=== PATIENT | male | born 1990 | race Caucasian/White ===

== ENCOUNTER 2017-11-01 22:38 | Emergency (ER) | payer SELFPAY ==
[2017-11-01 22:39] VITALS: BP 153/86; PULSE 151; RESP 16; TEMP 37.5; O2SAT 95; BMI 28.5
--- NOTE | 2017-11-01 23:06 | EKG12_ITS ---
Test Reason : GENERAL ILLNESS Blood Pressure : / mmHG Vent. Rate : 132 BPM Atrial Rate : 132 BPM P-R Int : 146 ms QRS Dur : 078 ms QT Int : 284 ms P-R-T Axes : 051 027 038 degrees QTc Int : 420 ms Sinus tachycardia Otherwise normal ECG Confirmed by NEHAL AMOS, MOISES ([id number]), slot editor ARACELI SHAW ([id number] on 11/03/2017 1:24:41 PM Referred By: VIPIN Confirmed By:MOISES CALVERT MD
--- NOTE | 2017-11-01 23:09 | ED.VISSUMM ---
- ER Visit Summary Date of Service: 11/01/17 Chief Complaint: Cough History of Present Illness: The patient is a 27 M with nasal congestion and rhinorrhea for a week to 1.5 weeks, states that as of this morning, he has had subjective fevers, malaise, myalgias, a significant nonproductive cough, and since he woke up from a nap earlier, chest heaviness/tightness and some mild dyspnea. Significant other had 2 different viruses but they were a month or 2 ago. Patient denies any past medical history, no recent travel, hospitalization, surgeries, leg pain or swelling, heart or lung history. Physical Examination: Temperature is 99.5, heart rate 151, pulse ox 95 on room air. The rest of his vital signs are unremarkable, respiratory rate 16. He is in no acute distress. Expiratory wheezes throughout all lung silva, otherwise clear. Equal breath sounds are bilaterally. Trachea midline. Posterior oropharynx is erythematous but there is no tonsillar edema, exudates, or asymmetry. TMs are normal bilaterally, no cervical lymphadenopathy, neck is supple. Abdomen benign. No calf tenderness or pedal edema. Test Results: Influenza swab negative. Chest x-ray read by radiology as lateral left basilar atelectasis and otherwise negative. EKG shows sinus tachycardia and is otherwise normal. Normal axis. No signs of acute injury. Emergency Department Course and Treatment: After a duo nebulizer treatment, his chest discomfort is gone, he is definitely feeling better. I reexamined him. He has slight inspiratory wheezes and rhonchi at the bases, versus transmitted upper airway sounds. Given this I think it is reasonable to cover him for possible clinical pneumonia. He is in no respiratory distress, is conversational, he is breathing comfortably, and I think he is stable for discharge home. He appears relatively well. We will give him a dose of azithromycin as well as prescription for the rest as well as an albuterol inhaler prescription. Encouraged to return if worse, otherwise following up with his doctor this coming week. He is comfortable with that plan. Treatment Plan: Azithromycin, albuterol mdi Disposition: Discharge home Impression: Clinical community acquired pneumonia This note was generated with [employer] software. It may contain incorrect words, spelling, and punctuation that were not noted in review of the chart prior to signing ED Disposition - Plan for ED Patient: Disposition: Home or Assisted Living Chief Complaint: General Illness Instructions: Walking Pneumonia Prescriptions: Albuterol Inhaler [Ventolin Hfa] 1 - 2 puff INHALATION Q4H PRN PRN #1 inhaler PRN Reason: Wheezing Azithromycin 250 mg PO QHS #4 tab Referrals: Christine Rolle [NON-STAFF] - 3-5 Days
[2017-11-01 23:16] VITALS: PULSE 131; RESP 24
[2017-11-01] MEDS: Ipratropium/Albuterol Sulfate 3 ML AMPUL.NEB INHALATION (23:16)
[2017-11-01] MEDS: Acetaminophen 500 MG Tablet 1000 MG PO (23:16)
--- NOTE | 2017-11-01 23:45 | RAD_ITS ---
STUDY: X-RAY CHEST REASON FOR EXAM: Male, 27 years old. Cough with fever. TECHNIQUE: Frontal and lateral views of the chest. COMPARISON: None. FINDINGS: There is mild left lateral basilar atelectasis. Otherwise the lungs are clear and expanded. There is no demonstrated pleural abnormality. Normal size heart. Normal mediastinum and dante. Normal visualized pulmonary arteries. Normal visualized aortic arch and descending thoracic aorta. Normal visualized thoracic spine. Normal visualized ribs, clavicles, and shoulders. There is no demonstrated abnormality of the visualized soft tissue structures of the upper abdomen. RAD/Chest PA and Lateral IMPRESSION: Mild left basilar atelectasis. No evidence for acute cardiopulmonary pathology. Electronically Signed: Robert Guo MD at 1:03 EST , Service support ,
[2017-11-02] MEDS: Azithromycin 250 MG Tablet 500 MG PO (01:23)
[2017-11-02 01:24] VITALS: PULSE 117; RESP 15; O2SAT 95
== END 2017-11-02 01:25 | disposition home or self-care (01) ==
PROVIDERS: Emergency Provider Emergency Medicine
DX: J18.9 Pneumonia, unspecified organism (principal); R00.0 Tachycardia, unspecified
CPT/HCPCS: 71046; 87804; 93005; 94640; 99283

== ENCOUNTER 2019-06-09 20:51 | Emergency (ER) | payer OTHER, SELFPAY ==
[2019-06-09 20:52] VITALS: BP 145/71; PULSE 87; RESP 16; TEMP 36.3; O2SAT 99; BMI 29.2
--- NOTE | 2019-06-09 21:42 | ED.DCSUM_ITS ---
- ER Visit Summary Date of Service: 06/09/19 Chief Complaint: Dental pain History of Present Illness: The patient is a 29 M who goes to the [facility]. He reports that he has pain to his maxillary left central incisor that began today. Is a throbbing pain sent 10 hours and 7 out of 10 currently. Is worsened by eating. Is partially relieved by Tylenol. It is sensitive to cold temperatures. Patient reports that he has been having problems with his left maxillary second and third molars for proximally 1 week. He actually has an appointment to see the dental clinic at the [facility] clinic next week. Physical Examination: Vitals: Stable. Afebrile. Mouth: No trismus. No edema of the floor of the mouth. Pain with percussion of left maxillary central incisor. There is no focal abscess here. He has obvious caries to his left maxillary third molar in the posterior two thirds of this is eroded to the gumline. There are obvious caries in the second molar as well. Both of these teeth are moderately tender to percussion. There is no focal abscess here either. General: A&O x 3. NAD. Cardiovascular exam: Regular rate and rhythm, no murmur, rub or gallop. Respiratory exam: Clear to auscultation bilaterally. No wheezes or stridor. Abdominal exam: Soft, nontender, nondistended, normal bowel sounds. No peritoneal signs. Extremity: No clubbing, cyanosis, or edema. Emergency Department Course and Treatment: She was treated with penicillin and naproxen. He is resting comfortably. Treatment Plan: Patient will be discharged penicillin naproxen. Instructed to contact the [facility] and to getting his seen as soon as possible. He is also given a list of other dental clinics in the area. Return to the emergency department for any worsening symptoms. Disposition: To home in improved and stable condition. Impression: 1. Dental pain. This note was generated with [employer] dictation software. It may contain incorrect words, spelling, and punctuation that were not noted in review of the chart prior to signing ED Disposition - Plan for ED Patient: Disposition: Home or Assisted Living Instructions: Dental Pain Prescriptions: Naproxen [Naprosyn] 500 mg PO BID #14 tab Prescription Printed Penicillin V Potassium 500 mg PO 4X/DAY #40 tab Prescription Printed Referrals: Dentist,Your [STAFF PHYSICIAN] - As soon as possible
[2019-06-09] MEDS: Naproxen 250 MG Tablet 500 MG PO (21:48)
[2019-06-09 21:49] VITALS: BP 154/90; PULSE 78; RESP 17; O2SAT 98
[2019-06-09] MEDS: Penicillin Vk 250 MG Tablet 500 MG PO (21:49)
== END 2019-06-09 21:52 | disposition home or self-care (01) ==
LOC: ED 21:23
PROVIDERS: Emergency Provider Emergency Medicine
DX: K08.89 Other specified disorders of teeth and supporting structures (principal); F32.9 Major depressive disorder, single episode, unspecified; Z72.0 Tobacco use; Z79.899 Other long term (current) drug therapy
CPT/HCPCS: 99283

== ENCOUNTER 2020-03-15 18:30 | Emergency (ER) | payer OTHER, SELFPAY ==
[2020-03-15 18:31] VITALS: BP 143/78; PULSE 82; RESP 18; TEMP 36.7; O2SAT 100; BMI 59.8
--- NOTE | 2020-03-15 18:46 | ED.VIS.GEN ---
History of Present Illness Chief Complaint: Chest Pain Informant: Patient, Family Onset: Weeks - 1.5 weeks Context: Sudden Onset Timing: Continuous, Waxes and wanes Quality: Chest discomfort, tingling, dyspnea Location: Chest and generalized Current Severity: Mild Maximum Severity: Moderate Worsened by: Stress Relieved by: Nothing Associated Symptoms: Lightheadedness Narrative: Patient a 29-year-old male who has seen a counselor for 3 years according to mother. He has never seen a psychiatrist. He is on no medication for depression anxiety. Nothing has precipitated his symptoms. Nothing has alleviated. He states it is worse with stress. No new stressors to his knowledge i.e. finance, work or relation ships. He presently complains of numbness face chest fingers and shortness of breath with lightheadedness. He has no history of PE or DVT. He denies leg pain, swelling or discoloration. No coronary artery risk factors. Prior similar symptoms: No Recent Illness/Hospitalization: No - Past Medical History (1) History of anxiety disorder Status: Acute Past Medical History - Allergies and Home Meds Allergies/Adverse Reactions: Allergies No Known Allergies Allergy (Verified 03/15/20 18:33) Primary Care Physician: Care Physician,No Primary [Primary Care Provider] - Prior records reviewed: No Surgical History: no surgical history Lives: With Family Smoking Status: Current every day smoker Alcohol: None Drugs: None Review of Systems General: Denies: Chills, Fever, Malaise Eyes: Denies: Visual changes - bilaterally, Blurred Vision - bilaterally ENT: Denies: Bilateral ear pain, Rhinorrhea, Sore throat Cardiovascular: Reports: Chest pain. Denies: Palpitations, Heart racing, -, - Respiratory: Reports: Dyspnea. Denies: Cough, Sputum, Dyspnea on exertion, Orthopnea, Paroxysmal nocturnal dyspnea, -, - Gastrointestinal: Denies: Abdominal pain, Nausea, Vomiting, Diarrhea, Melena, Hematochezia Musculoskeletal: Denies: Myalgias, Arthralgias, Neck pain, Back pain, Swelling, Extremity Pain, -, - Neurological: Reports: Parasthesia, Numbness. Denies: Headache, Weakness, -, - Psych: Reports: Anxiety. Denies: Depression, Suicidal thoughts, Suicidal ideations, -, - Allergy: Denies: Uticaria, Swelling of the mouth Physical Exam Vital Signs/Narrative: Vital Signs Temp Pulse Resp BP Pulse Ox 03/15/20 18:31 98.1 F 82 18 143/78 H 100 Inital Vital Signs reviewed: Yes General: Well nourished, Well developed, No Acute Distress Head: Normocephalic, Atraumatic Eyes: Perrl, EOMI. Negative for: Pale conjunctiva, Scleral icterus ENT: Moist mucous membranes, No rhinorrhea, - - Chvostek sign bilaterally Neck: Supple, Nontender, No lymphadenopathy, No JVD Cardiovascular: Regular rate, Regular rhythm, No murmurs Respiratory: No distress, CTA bilaterally, Chest nontender Abdomen: Soft, Nontender, Nondistended, Normal bowel sounds Back: Nontender, Normal Inspection Extremities: Nontender, No edema. Negative for: Calf Tenderness Skin: Normal color, No rash Neurological: Alert, Oriented x3, Cranial nerves II-XII grossly intact, Normal Strength, Normal Sensation, Normal DTR - Patient is hyperreflexic. Psychological: Normal affect, Normal Mood Diagnostic/Tx/Re-eval - EKG Initial EKG Interpretation: Sinus Rhythm, - - Documented under medical decision making - Medical Decision Making Patient's history and physical exam is consistent with hyperventilation syndrome. He was treated with Ativan and brown paper bag. EKG was obtained per nurse protocol and reveals a normal sinus rhythm rate of 81. RI interval is 128 ms. QRS duration 82 ms. QT duration 374 ms and axis is normal. The EKG is normal. Went to assess patient at 1930. He was in restroom. Mother states he feels markedly better. Plan is to discharge prescription for Ativan and appropriate home-going instructions ED Disposition - Plan for ED Patient: Disposition: Home or Assisted Living Diagnosis: Acute hyperventilation syndrome, Anxiety reaction Instructions: ED Hyperventilation Syndrome, ED Stress React Prescriptions: Lorazepam [Ativan] 0.5 mg PO TID PRN PRN 5 Days #15 tab PRN Reason: Stress/anxiety reaction Prescription Printed Referrals: Care Physician,No Primary [Primary Care Provider] - Additional Instructions: Keep appointment with psychiatrist.
[2020-03-15] MEDS: LORazepam 0.5 MG Tablet PO (18:49)
--- NOTE | 2020-03-15 19:07 | EKG12_ITS ---
Test Reason : CP Blood Pressure : / mmHG Vent. Rate : 081 BPM Atrial Rate : 081 BPM P-R Int : 128 ms QRS Dur : 082 ms QT Int : 374 ms P-R-T Axes : 059 036 043 degrees QTc Int : 434 ms Normal sinus rhythm with sinus arrhythmia Normal ECG Confirmed by MIAH JENKINS ([id number]), editor producer NELSY URBANO ([id number]) on 03/23/2020 12:02:59 PM Referred By: DELL Confirmed By:MIAH JENKINS
[2020-03-15 19:34] VITALS: RESP 18
== END 2020-03-15 19:37 | disposition home or self-care (01) ==
PROVIDERS: Emergency Provider Emergency Medicine
DX: F45.8 Other somatoform disorders (principal); F41.1 Generalized anxiety disorder; F17.200 Nicotine dependence, unspecified, uncomplicated
CPT/HCPCS: 93005; 99283

== ENCOUNTER 2024-06-19 08:48 | Emergency (ER) | payer OTHER, SELFPAY ==
[2024-06-19 08:50] VITALS: BP 124/97; PULSE 82; RESP 18; TEMP 37; O2SAT 100; BMI 28.3
--- NOTE | 2024-06-19 09:11 | RAD_ITS ---
STUDY: X-RAY CHEST REASON FOR EXAM: Male, 34 years old. chest pain TECHNIQUE: Single AP portable view of the chest. COMPARISON: 11/01/2017 FINDINGS: The lungs are clear and expanded. There is no demonstrated pleural abnormality. Normal size heart. Normal mediastinum and dante. Normal visualized pulmonary arteries. Normal visualized aortic arch and descending thoracic aorta. Normal visualized thoracic spine. Normal visualized ribs, clavicles, and shoulders. There is no demonstrated abnormality of the visualized soft tissue structures of the upper abdomen. RAD/Chest 1 View (Portable) IMPRESSION: Normal x-ray examination of the chest. Electronically Signed: Yuniel Garcia MD at 19:37 EDT ,
--- NOTE | 2024-06-19 09:11 | EKG12_ITS ---
Test Reason : Blood Pressure : / mmHG Vent. Rate : 061 BPM Atrial Rate : 061 BPM P-R Int : 124 ms QRS Dur : 084 ms QT Int : 384 ms P-R-T Axes : 061 061 066 degrees QTc Int : 386 ms Normal sinus rhythm Normal ECG Confirmed by THANH AMOS, ARCADIO ([id number]), editor department ANTONIO MAYS ([id number]) on 06/22/2024 2:01:26 PM Referred By: Confirmed By:ARCADIO LAW MD
--- NOTE | 2024-06-19 09:25 | CT_ITS ---
STUDY: CT ABDOMEN AND PELVIS WITH CONTRAST REASON FOR EXAM: Male, 34 years old. Epigastric pain RADIATION DOSAGE (If Supplied By Facility): CTDIvol = ( 14.4 ) mGy, DLP = ( 881.76 ) mGycm TECHNIQUE: IV 100mL Isovue-300 was administered. Transaxial images were obtained from the dome of the diaphragm to the symphysis pubis. Multiplanar coronal and sagittal images were reformatted. The protocol utilizes one or more of the following dose reduction techniques: automated exposure control, adjustment of mA and/or kV according to patient size,and/or use of iterative reconstruction technique. COMPARISON: No relevant prior comparison study available FINDINGS: The visualized lung bases are unremarkable. The visualized portions of the heart are within normal limits. Normal liver. Normal gallbladder and extrahepatic biliary system. Normal spleen. Normal pancreas. Normal bilateral adrenal glands. Normal visualized stomach. Normal in caliber small bowel loops. No evidence of acute diverticulitis. Fecal retention. The appendix is visualized and appears normal. Normal abdominal aorta. No retroperitoneal adenopathy. Normal right kidney. Normal left kidney. Normal urinary bladder. No pelvic mass. Normal abdominal wall. Normal osseous structures. CT/Abdomen/Pelvis W IV Cont ONLY IMPRESSION: No focal acute inflammatory process. Electronically Signed: Martinez Casiano MD at 10:44 EDT ,
--- NOTE | 2024-06-19 09:30 | EX.ED.DYSGE1 ---
HPI History of Present Illness Chief Complaint: Chest Other Informant: patient Narrative Narrative: 34-year-old male presenting to the emergency room with epigastric pain. Patient states that he was seen at an outside emergency department 2 evenings ago. He states he was told that he was having gastritis. He was having some discomfort in his lower throat that seem to progress to some epigastric discomfort in midsternum. States he had blood work and scheduled a follow-up appointment with a new PCP but is not until August. Yesterday he went to work and was using a floor buffer and went to turn and felt a pain just lower to where he was having the symptoms and his epigastrium. He states that he had some broccoli cheese soup last night. He has not had any vomiting. He has been trying some Mylanta. He states the pain seems worse. It does not radiate to his back. He called his aunt who is an EMT in [place] who was concerned he may be having a hiatal hernia. So he came to emergency with worsening pain. He denies any prior abdominal surgeries. [facility] Home Medications ?Medication ?Instructions ?Recorded ?Last Taken ?Type amitriptyline 50 mg tablet 50 mg PO QHS 06/09/19 Unknown History naproxen 500 mg tablet 500 mg PO BID #14 tabs 06/09/19 Unknown Rx penicillin V potassium 500 mg 500 mg PO 4X/DAY #40 tabs 06/09/19 Unknown Rx tablet pantoprazole 40 mg tablet,delayed 40 mg PO DAILY #30 tabs 06/19/24 Unknown Rx release (Protonix) sucralfate 1 gram tablet (Carafate) 1 g PO Q6H #56 tabs 06/19/24 Unknown Rx Allergy/AdvReac Type Severity Reaction Status Date / Time No Known Allergies Allergy Verified 06/19/24 08:49 Surgical History (Updated 06/19/24 @ 09:[address] Irving Carrero DO) [place] teeth removed Social History Smoking Status: Current every day smoker tobacco type: cigarettes ROS ROS ED Constitutional Constitutional ED: Denies chills, fever(s) or weight loss Eyes Eyes: Denies change in vision or diplopia ENT ENT ED: Reports sore throat; Denies ear pain or rhinorrhea Cardiovascular Cardiovascular: Reports chest pain; Denies orthopnea, palpitations or racing heartbeat Respiratory/Chest Respiratory/Chest: Denies cough, dyspnea or orthopnea Gastrointestinal Gastrointestinal: Reports abdominal pain and nausea; Denies diarrhea or vomiting Genitourinary Genitourinary ED: Denies dysuria, hematuria or urinary frequency Musculoskeletal Musculoskeletal: Denies arthralgias or myalgias Integumentary Denies abscess or rash Neurologic Neurologic: Denies headache(s) or weakness Psychiatric Psychiatric: Denies anxiety, depression, suicidal ideation or suicidal thoughts Endocrine Endocrinology: Denies polydipsia, polyphagia or polyuria Allergic/Immunologic Allergic/Immunologic ED: Denies mouth swelling, tongue swelling or urticaria EXAM Physical Exam Const Vital Signs: 06/19/24 08:50 06/19/24 10:49 06/19/24 11:47 Temperature 98.6 F 98 F Temperature Source Oral Pulse Rate 82 63 70 Respiratory Rate 18 29 H 16 Blood Pressure 124/97 H 122/62 H 114/77 Blood Pressure Mean 106 82 89 Pulse Ox 100 95 99 Oxygen Delivery Method Room Air Room Air Positive well nourished and well developed General Appearance ED: well developed HEENT Reports normocephalic, head/scalp atraumatic and moist mucous membranes Eyes PERRL and EOMs intact bilaterally Neck no lymphadenopathy, supple and no JVD Resp normal respiratory effort and clear to auscultation bilaterally Cardio regular rate, regular rhythm and no murmurs GI no masses Inspection: Negative for abdominal distention Auscultation: normoactive bowel sounds Palpation: soft and tender other (Patient reports diffuse tenderness to palpation even over the lower quadrants but then also states that his bladder feels really full.); Negative for guarding or rebound tenderness present Back/Spine no CVA tenderness and normal ROM Extremity normal to inspection General Extremety ED: Negative for edema General Extremity: Negative for edema Neuro oriented x3 and CN's II-XII intact bilaterally Sensorium / Orientation: alert Motor Exam: strength 5/5 throughout Psych mental status grossly normal Mood & Affect: anxious; Negative for depressed or tearful Skin no rashes or lesions noted and no wounds MDM MDM MDM Narrative Medical decision making narrative: Differential diagnosis would include gastritis/GERD esophagitis gastric ulcer acute coronary syndrome pancreatitis cholelithiasis/choledocholithiasis perforated viscus small bowel obstruction volvulus Basic blood work is rather unremarkable glucose 10 not normal LFTs lipase. EKG is nonischemic and sinus. Troponin is normal. CT of the abdomen pelvis demonstrates no acute finding. My independent interpretation of the chest x-ray is no acute process. At this point we will place the patient on Protonix and some Carafate. He is to monitor for any changes worsening of symptoms. Certainly could have gastric ulcer that does not appear to be causing anemia at this time. Not seeing evidence of pancreatitis or gallbladder disease. Not seeing evidence of ACS at her aortic dissection and aneurysm. Do not see any pleural effusion or pneumonia. Would recommend EGD if not improving History & Record Review Discussion w/independent historian: Patient and Significant other Lab Data Attestation: I reviewed the patient's lab results. Labs: Laboratory Results - last 24 hr 06/19/24 09:32 WBC 10.8 RBC 5.22 Hgb 16.3 Hct 46.6 MCV 89.3 MCH 31.2 MCHC 35.0 RDW Std Deviation 38.3 RDW Coeff of Sarah 11.8 Plt Count 317 MPV 9.9 Immature Gran % (Auto) 0.600 Neut % (Auto) 58.4 Lymph % (Auto) 29.3 Ross % (Auto) 7.5 Eos % (Auto) 3.7 Baso % (Auto) 0.5 Absolute Neuts (auto) 6.3 Absolute Lymphs (auto) 3.17 Nucleated RBC % 0 Sodium 140 Potassium 3.7 Chloride 106 Carbon Dioxide 28.0 Anion Gap 6 BUN 16 Creatinine 0.95 Estim Creat Clear Calc 124.70 Est GFR (MDRD) Af Amer 115 Est GFR (MDRD) Non-Af 95 BUN/Creatinine Ratio 16.8 Glucose 109 H Calcium 9.4 Total Bilirubin 0.50 Direct Bilirubin 0.13 AST 17 ALT 49 Alkaline Phosphatase 93 Troponin I High Sens 3 Total Protein 7.7 Albumin 4.2 Globulin 3.5 Lipase 28 Radiography Diagnostic Testing: Clinical Impression(s) from Imaging Studies Abdomen/Pelvis CT 06/19/24 09:25 IMPRESSION: No focal acute inflammatory process. Electronically Signed: Martinez Casiano MD at 10:44 EDT , EKG Initial EKG: Attestation: I personally reviewed and interpreted this EKG as follows: Comments: Normal sinus rhythm ventricular rate of 61 bpm Discharge Plan Triage Chief Complaint: Chest Other ED Provider: Irving Carrero Dx/Rx/DC Orders Clinical Impression: Abdominal pain, GERD (gastroesophageal reflux disease) Instructions: ED GERD (Adult) Prescriptions: New pantoprazole [Protonix] 40 mg tablet,delayed release (DR/EC) 40 mg PO DAILY Qty: 30 0RF sucralfate [Carafate] 1 gram tablet 1 g PO Q6H Qty: 56 0RF No Action amitriptyline 50 MG tablet 50 mg PO QHS Patient Comments: 1 TABLET 2 HOURS BEFORE BED DAILY penicillin V potassium 500 MG tablet 500 mg PO 4X/DAY Qty: 40 0RF naproxen 500 MG tablet 500 mg PO BID Qty: 14 0RF Primary Care Provider: Care Physician,No Primary Referrals: Jay Islas MD [Med Staff - Active Staff] - (Surgical evaluation for EGD) Blue Carlson DO [Med Staff - Active Staff] - (For gastroenterology evaluation of EGD/symptoms) Care Physician,No Primary [Primary Care Provider] - Print Language: Tajik Disposition Disposition: Home, Self Care Discharge Date/Time: 06/19/24 11:54
[2024-06-19] MEDS: Ondansetron 4 MG/2 ML Vial IV (09:37)
[2024-06-19] MEDS: Mag Hydrox/Al Hydrox/Simeth 30 ML UDC PO (09:37)
[2024-06-19] MEDS: Lidocaine 2% Viscous15 ML UDC 15 ML PO (09:37)
[2024-06-19 09:43] LABS: Absolute Lymphocyte Count 3.17 X10^3/uL (0.83-4.51); Absolute Neutrophil Count 6.3 X10^3/uL (2.0-7.7); Basophil# 0.05 X10^3/uL; Basophil% 0.5 % (0-1); Eosinophils% 3.7 % (0-5); Hematocrit 46.6 % (40-54); Hemoglobin 16.3 g/dL (13.0-16.5); Lymphocyte # 3.17 X10^3/ul (0.83-4.51); Lymphocyte % 29.3 % (19-41); Mean Corpuscular Hgb 31.2 pg (27.0-32.0); Mean Corpuscular Volume 89.3 fL (80-94); Mean Platelet Vol. 9.9 fl (6.2-12.0); Monocyte# 0.81 X10^3/uL; Monocyte% 7.5 % (0-10); NRBC Flagged by Analyzer 0 % (0-5); Neutrophil # 6.33 X10^3/uL (2.7-7.7); Neutrophil % 58.4 % (47-70); Platelet Count 317 K/mm3 (150-450); RBC Distribution Width CV 11.8 % (11.6-14.6); RBC Distribution Width SD 38.3 fl (35.1-43.9); Red Blood Count 5.22 M/mm3 (4.6-6.2); White Blood Count 10.8 K/mm3 (4.4-11.0)
[2024-06-19 10:01] LABS: AST(SGOT) 17 U/L (15-37); Alanine Aminotransfer ALT/SGPT 49 U/L (16-61); Albumin, Serum 4.2 g/dL (3.2-5.0); Alkaline Phosphatase 93 U/L (45-117); Anion Gap 6 (5-15); BUN 16 mg/dL (7-18); BUN/Creat Ratio 16.8 RATIO (10-20); Bilirubin, Direct 0.13 mg/dL (0.00-0.30); Calcium,Total 9.4 mg/dL (8.5-10.1); Chloride 106 mmol/L (98-107); Creatinine, Serum 0.95 mg/dL (0.70-1.30); EST Glomerular Filtration Rate 95 mL/min (>60); Est Glom Filt Rate - Afr Amer 115 mL/min (>60); Globulin 3.5 g/dL (2.2-4.2); Glucose 109 mg/dL (74-106); Lipase 28 U/L (13-75); Potassium 3.7 mmol/L (3.5-5.1); Protein, Total 7.7 g/dL (6.4-8.2); Sodium Level 140 mmol/L (136-145); Troponin-I HS 3 pg/mL (3.0-78.0)
[2024-06-19 10:49] VITALS: BP 122/62; PULSE 63; RESP 29; O2SAT 95
[2024-06-19 11:47] VITALS: BP 114/77; PULSE 70; RESP 16; TEMP 36.6; O2SAT 99
== END 2024-06-19 11:54 | disposition home or self-care (01) ==
PROVIDERS: Emergency Provider Emergency Medicine; Visit Provider Emergency Medicine
DX: R10.9 Unspecified abdominal pain (principal); K21.9 Gastro-esophageal reflux disease without esophagitis; F17.210 Nicotine dependence, cigarettes, uncomplicated
CPT/HCPCS: 71045; 74177; 80048; 80076; 83690; 84484; 85025; 93005; 96374; 99284; Q9967; A4216; J2405

== ENCOUNTER → 2024-06-23 | Outpatient (CLI) | payer OTHER, SELFPAY ==
[2024-06-23 13:02] LABS: Absolute Lymphocyte Count 2.24 X10^3/uL (0.83-4.51); Absolute Neutrophil Count 4.3 X10^3/uL (2.0-7.7); Basophil# 0.03 X10^3/uL; Basophil% 0.4 % (0-1); Eosinophil# 0.31 X10^3/uL; Eosinophils% 4.1 % (0-5); Hematocrit 45.4 % (40-54); Hemoglobin 16.1 g/dL (13.0-16.5); Lymphocyte # 2.24 X10^3/ul (0.83-4.51); Lymphocyte % 29.8 % (19-41); Mean Corp Hgb Conc 35.5 g/dL (32-36); Mean Corpuscular Hgb 31.1 pg (27.0-32.0); Mean Corpuscular Volume 87.6 fL (80-94); Mean Platelet Vol. 9.6 fl (6.2-12.0); Monocyte# 0.63 X10^3/uL; Monocyte% 8.4 % (0-10); NRBC Flagged by Analyzer 0 % (0-5); Neutrophil # 4.26 X10^3/uL (2.7-7.7); Neutrophil % 56.8 % (47-70); Platelet Count 311 K/mm3 (150-450); RBC Distribution Width CV 11.7 % (11.6-14.6); RBC Distribution Width SD 37.5 fl (35.1-43.9); Red Blood Count 5.18 M/mm3 (4.6-6.2); White Blood Count 7.5 K/mm3 (4.4-11.0)
[2024-06-23 13:04] LABS: ALB/GLOB Ratio 1.1 RATIO (0.9-2.4); AST(SGOT) 18 U/L (15-37); Alanine Aminotransfer ALT/SGPT 39 U/L (16-61); Albumin, Serum 4.1 g/dL (3.2-5.0); Alkaline Phosphatase 88 U/L (45-117); Anion Gap 6 (5-15); BUN 14 mg/dL (7-18); BUN/Creat Ratio 14.8 RATIO (10-20); Calcium,Total 9.2 mg/dL (8.5-10.1); Chloride 105 mmol/L (98-107); Creatinine, Serum 0.95 mg/dL (0.70-1.30); EST Glomerular Filtration Rate 96 mL/min (>60); Est Glom Filt Rate - Afr Amer 116 mL/min (>60); Globulin 3.8 g/dL (2.2-4.2); Glucose 95 mg/dL (74-106); Potassium 3.9 mmol/L (3.5-5.1); Protein, Total 7.9 g/dL (6.4-8.2); Sodium Level 136 mmol/L (136-145)
== END | disposition home or self-care (01) ==
LOC: VSLAB 10:53
PROVIDERS: PCP Nurse Practitioner Family; Visit Provider Nurse Practitioner Family
DX: R10.13 Epigastric pain (principal)
CPT/HCPCS: 36415; 80053; 85025

== ENCOUNTER 2024-07-28 09:54 | Day surgery (SDC) | payer OTHER, SELFPAY ==
[2024-07-28] VITALS (7 sets, daily range): BP systolic 109–117; BP diastolic 71–77; PULSE 87–97; RESP 16–18; TEMP 36.1–36.4; O2SAT 92–100; BMI 27.0
== END 2024-07-28 11:52 | disposition home or self-care (01) ==
LOC: EN 09:55 → AC 09:56
PROVIDERS: Referring Provider Internal Medicine Gastroenterology; Visit Provider Internal Medicine Gastroenterology
PROC: 0DJ08ZZ Inspection of Upper Intestinal Tract, Via Natural or Artificial Opening Endoscopic (ICD-10-PCS; CPT 43235; principal; 2024-07-28 10:55)
DX: K31.A19 Gastric intestinal metaplasia without dysplasia, unspecified site (principal); I85.00 Esophageal varices without bleeding; R10.13 Epigastric pain; F41.9 Anxiety disorder, unspecified; K31.1 Adult hypertrophic pyloric stenosis; K29.70 Gastritis, unspecified, without bleeding; F17.200 Nicotine dependence, unspecified, uncomplicated; Z79.899 Other long term (current) drug therapy
CPT/HCPCS: 43239; 88305; 88312; 88342; J2405

== ENCOUNTER → 2024-09-09 | Outpatient (CLI) | payer OTHER, SELFPAY ==
--- NOTE | 2024-09-09 08:18 | US_ITS ---
STUDY: ABDOMINAL ULTRASOUND - RIGHT UPPER QUADRANT; ELASTOGRAPHY REASON FOR VISIT: Male, 34 years old. Esophageal varices. TECHNIQUE: Ultrasound evaluation of the right upper quadrant was performed with real-time and static connor-scale imaging. Point quantification shear wave elastography was performed ([employer]). TECHNICAL QUALITY: Adequate. COMPARISON: Comparison is made with prior CT scan done on pelvis views June 11, 2024. FINDINGS: Liver: The liver measures 17.6 cm. There is normal echogenicity of the liver. The bile ducts are within normal limits. There is hepatic color flow. The direction of portal flow is hepatopetal. There is no demonstrated mass lesion. Median liver stiffness measured 5.3 kPa. Gallbladder: Normal distended gallbladder. The gallbladder wall measures 1.6 mm. There is a negative sonographic Benites''s sign. There is no pericholecystic fluid. There are no gallstones. Common Bile Duct (C.B.D.): The common bile duct measures 4.6 mm. Pancreas: Limited evaluation due to overlying bowel gas. Right Kidney: Normal size of the right kidney. The right kidney measures 10 cm x 5.7 cm x 5.4 cm. Normal renal cortex. The right cortex measures 1.1 cm. There is no demonstrated renal mass or cyst. There is no right hydronephrosis. US/ABD Limited w/ Elastography IMPRESSION: 1. Liver stiffness measures 5.3 kPa compatible with F0-F1 (Normal to mild liver fibrosis) Metavir score. Electronically Signed: Prabhakar Mann MD at 9:01 EST ,
== END | disposition home or self-care (01) ==
LOC: US 08:14
PROVIDERS: Referring Provider Student in an Organized Health Care Education/Training Program; Visit Provider Student in an Organized Health Care Education/Training Program
DX: I85.00 Esophageal varices without bleeding (principal)
CPT/HCPCS: 76705; 76981